=== PATIENT | female | born 1970 | race Hispanic/Latino ===

== ENCOUNTER 2019-11-05 08:10 | Outpatient (CLI) | payer OTHER ==
--- NOTE | 2019-11-05 11:29 | MRI ---
MRI RIGHT KNEE: DATE: 11/05/2019. PROVIDED CLINICAL HISTORY: Pain. FINDINGS: Evaluation is limited by patient motion. The anterior cruciate ligament, posterior cruciate ligament, medial collateral ligament, and lateral collateral ligamentous complex demonstrate an intact MR appearance, as does the extensor mechanism. There is complex nondisplaced tearing involving the body and posterior horn of the lateral meniscus, which appears partially discoid. The medial meniscus demonstrates no definite evidence for tear. There is a full-thickness area of articular cartilage loss involving the central weightbearing portio ns of the medial femoral condyle with nondisplaced delaminating component. The full-thickness portio n of the articular cartilage defect measures about 1 mm in AP dimension and the defect including the delaminated component measures about 5 mm in transverse dimension. This is suboptimally visualized o n the sagittal images and thus the AP extent is poorly characterized. Articular cartilage appears otherwise preserved. The patellar articular cartilage is not well evalua yazmin. There is marrow edema within the subcortical medial femoral condyle in its anterior central weightbea ring portion. There is subtle linear subchondral hypointensity/thickening of the subchondral bone pl ate. There is a small knee joint effusion with Florian's cyst formation. Regional marrow and muscular signa l appear otherwise normal. IMPRESSION: 1. Lateral meniscal tar as described. 2. Nondisplaced delaminating articular cartilage defect involving the medial femoral condyle as desc ribed. 3. Marrow signal alteration involving the medial femoral condyle which could reflect signal changes reactive to articular cartilage loss versus superimposed subchondral insufficiency fracture. 4. Small knee joint effusion with small Florian's cyst. POS: [id number]
== END 2019-11-05 08:11 | disposition home or self-care (01) ==
LOC: TBSIIMAG 08:10
PROVIDERS: ATTEND Orthopaedic Surgery
DX: S83.241A Other tear of medial meniscus, current injury, right knee, initial encounter (principal); S83.271A Complex tear of lateral meniscus, current injury, right knee, initial encounter; M25.461 Effusion, right knee; M71.21 Synovial cyst of popliteal space [Baker], right knee